=== PATIENT | female | born 1945 | race Caucasian/White ===

== ENCOUNTER → 2024-09-09 10:51 | Outpatient (REF) | payer MEDICARE, OTHER, SELFPAY | LOC: RCS 10:51 | PROVIDERS: ATTENDING PHYSICIAN Nurse Practitioner Family | DX: I10 Essential (primary) hypertension (principal) | CPT/HCPCS: 93005 ==

== ENCOUNTER → 2024-09-16 15:30 | Outpatient (REF) | payer MEDICARE, OTHER, SELFPAY | LOC: HWRCS 15:30 | PROVIDERS: ATTENDING PHYSICIAN Physician Assistant | DX: I10 Essential (primary) hypertension (principal); R94.31 Abnormal electrocardiogram [ECG] [EKG] | CPT/HCPCS: 93306 ==

== ENCOUNTER → 2024-09-27 13:57 | Outpatient (REF) | payer MEDICARE, OTHER, SELFPAY | LOC: HWWDC 13:57 | PROVIDERS: ATTENDING PHYSICIAN Physician Assistant | DX: Z12.31 Encounter for screening mammogram for malignant neoplasm of breast (principal) | CPT/HCPCS: 77063; 77067 ==

== ENCOUNTER → 2024-10-14 10:03 | Outpatient (REF) | payer MEDICARE, OTHER, SELFPAY | LOC: WDC 10:03 | PROVIDERS: ATTENDING PHYSICIAN Physician Assistant | DX: R92.8 Other abnormal and inconclusive findings on diagnostic imaging of breast (principal) | CPT/HCPCS: 76642 ==

== ENCOUNTER → 2024-10-17 20:12 | Outpatient (REF) | payer MEDICARE, OTHER, SELFPAY | LOC: MRI 3T 20:12 | PROVIDERS: ATTENDING PHYSICIAN Physician Assistant | DX: R51.9 Headache, unspecified (principal); R20.0 Anesthesia of skin | CPT/HCPCS: 70553; A9575 ==

== ENCOUNTER 2024-10-20 12:08 | Emergency (ER) | payer MEDICARE, OTHER, SELFPAY ==
[2024-10-20 12:13] VITALS: BP 152/91
[2024-10-20 12:33] LABS: Urine Albumin Negative (Neg - Trace); Urine Bilirubin Negative (Negative); Urine Character Clear (Clear); Urine Color Yellow; Urine Glucose Negative (Negative); Urine Ketone 3+ (Negative); Urine Leukocyte 2+ (Negative); Urine Nitrite Negative (Negative); Urine Occult Blood 1+ (Negative); Urine Specific Gravity 1.025 (<1.030); Urine Urobilinogen Negative (Neg - 1+)
[2024-10-20 12:34] LABS: % Basophils 0.6 % (0-2); % Eosinophils 0.3 % (0-6); % Immature Granulocytes 0.5 % (0-0.5); % Lymphocytes 6.7 % (20.5-51.1); % Monocytes 5.3 % (1.7-9.3); % Neutrophils 86.6 % (42.2-75.2); Absolute Basophils 0.1 10^3/uL (0-0.2); Absolute Immature Granulocytes 0.1 10^3/uL (0-0.05); Absolute Lymphocytes 0.7 10^3/uL (1.2-3.4); Absolute Monocytes 0.6 10^3/uL (0.1-0.6); Absolute Neutrophils 9.5 10^3/uL (1.4-6.5); Hematocrit 39.7 % (37.0-47.0); Mean Corp Hgb Conc. 32.7 g/dL (33.0-37.0); Mean Corpuscular Hgb 30.7 pg (27.0-31.0); Mean Corpuscular Volume 93.9 fL (81.0-99.0); Mean Platelet Volume 9.2 fL (7.4-10.4); Nucleated Red Blood Cells % 0 %; Platelet Count 266 10^3/uL (130-400); Red Blood Cell Count 4.23 10^6/uL (4.20-5.40); Red Cell Dist. Width 13.7 % (11.5-14.5)
[2024-10-20 12:46] LABS: ALT (SGPT) 20 U/L (0-35); AST (SGOT) 25 U/L (14-36); Albumin 4.7 g/dl (3.5-5.0); Alkaline Phosphatase 72 U/L (38-126); Blood Urea Nitrogen 28 mg/dl (7-17); Calcium 9.7 mg/dl (8.4-10.2); Carbon Dioxide 27 mmol/L (22-30); Chloride 102 mmol/L (98-107); Glucose 186 mg/dl (70-99); Potassium 4.3 mmol/L (3.5-5.1); Sodium 138 mmol/L (135-145); Total Bilirubin 0.6 mg/dl (0.2-1.3); Total Protein 7.4 g/dl (6.3-8.2); Urine Bacteria Few (Negative); Urine Mucus Moderate; eGFR > 60.00
--- NOTE | 2024-10-20 14:00 | ED.GENMED ---
History of Present Illness
General
Chief Complaint: Flank Pain
Source: patient
Exam Limitations: none
Time Seen by Provider: 10/20/24 13:06
Nursing documentation reviewed up to this point in time: agreed with
History of Present Illness
History of Present Illness:
Patient is a 78-year-old female who presents to the ER for evaluation of right flank pain. She was at her state 9:30 AM and developed sudden pain in the right abdomen and right flank. She reports she had dry heaves and nausea but did not vomit.
She moved her bowels and that did not relieve her symptoms. Pain persisted and she presented to the ER. Now she reports she is asymptomatic. She has no prior history kidney stone. She denies any recent UTI symptoms. She denies any recent fever
or chills.
Review of Systems
Review of Systems
Allergies reviewed?: Yes
All Other Systems: ROS reviewed and negative except as documented in HPI and ROS
Constitutional: Reports no symptoms
Respiratory: Reports no symptoms
Cardiac: Reports no symptoms
ABD/GI: Reports abdominal pain, nausea and other (symptoms resolved now ); Denies vomiting, diarrhea or constipated
Phy Exam
General Physical Exam
General Presentation: no apparent distress
General age: appears stated age
General Skin: warm and dry
General Habitus: normal
General Mental: alert
General Hydration: appears well hydrated
Cardiovascular Exam
Cardiovascular Exam: regular rate/rhythm, no murmur and normal peripheral pulses
Pulmonary Exam
Pulmonary Exam: lungs clear and no respiratory distress
Gastrointestinal Exam
Gastrointestinal Exam: non tender and soft
Neurological Exam
Neurological Exam: alert and oriented x3
Musculoskeletal Exam
Musculoskeletal Exam: full ROM
Skin Exam
Skin Exam: normal color and warm/dry
Psychiatric Exam
Psychiatric Exam: normal mood/affect
Course
Orders/Labs/Results
Orders:
Orders
10/20/24 12:27
Complete Blood Count/With Diff Urgent
Comprehensive Metabolic Panel Urgent
Urinalysis Reflex To Culture Urgent
Date Specimen was Collected: 10/20/24
Time Specimen was Collected: 12:19
Urine Microscopic Reflex Cult Urgent
Urine Culture Urgent
MARTÍN Source: U
Specimen Description:
Date Specimen was Collected: 10/20/24
Time Specimen was Collected: 12:19
10/20/24 14:08
CT Abd/pel Without Iv Or Oral Urgent
Comment:
Reason For Exam: right flank pain
Abnormal Lab Results
10/20/24
12:27
WBC 11.0 H 10^3/uL
(4.8-10.8)
MCHC 32.7 L g/dL
(33.0-37.0)
Abs Immat Gran (auto) 0.1 H 10^3/uL
(0-0.05)
Absolute Neuts (auto) 9.5 H 10^3/uL
(1.4-6.5)
Absolute Lymphs (auto) 0.7 L 10^3/uL
(1.2-3.4)
Neutrophils % 86.6 H %
(42.2-75.2)
Lymphocytes % 6.7 L %
(20.5-51.1)
BUN 28 H mg/dl
(7-17)
Glucose 186 H mg/dl
(70-99)
Urine Ketones 3+ A
(Negative)
Ur Occult Blood Reflex 1+ A
(Negative)
Leukocyte Esterase Rfl 2+ A
(Negative)
Urine RBC 3-6 A /HPF
(0-2)
Urine Bacteria (Reflex) Few A
(Negative)
10/20/24 12:27
10/20/24 12:27
Vital Signs
Initial and Last Documented VS:
Initial Vital Signs
Temp Pulse Resp BP Pulse Ox
97.8 F 69 18 152/91 100
10/20/24 12:13 10/20/24 12:13 10/20/24 12:13 10/20/24 12:13 10/20/24 12:13
Last Documented Vital Signs
Temp Pulse Resp BP Pulse Ox
97.8 F 75 20 123/65 100
10/20/24 12:13 10/20/24 14:33 10/20/24 14:33 10/20/24 14:33 10/20/24 12:13
MDM/Problems Addressed
Differential Diagnosis Includes:
not limited to recently passed stone less likely UTI/Balaji
MDM/Problems Addressed:
Patient presented with complaints of right flank pain with nausea dry heaves that started this morning however resolved spontaneously. No UTI symptoms. Patient denies any fever or chills. She is afebrile with minimally elevated white count of
11.0 however asymptomatic here in the ER abdomen soft nontender no complaint of flank pain; urinalysis does not appear infected. CAT scan shows findings suggesting the possibility of recently 1 mm passed calculus within the bladder with monitor
right perinephric soft tissue stranding no hydronephrosis. Incidental left renal cyst which I did review with patient.
Patient's BUN is minimally elevated discussed with patient to stay better hydrated she may take Motrin as needed and strain urine
*Radiology
Radiology exam reviewed: radiology read reviewed
*Critical Care Note
Total Time (30-74mins, 75-104mins- exclusive of procedures): Not Applicable
ED Attending Note
-
Portions of this chart may have been created with voice recognition software.� Occasional wrong word or��sound alike� substitutions may have occurred due to the inherent limitations of voice recognition software.
Discharge Plan
Departure
Patient Disposition: Home (Routine Discharge)
Date of Disposition: 10/20/24
Time of Disposition: 17:06
Patient with high blood pressure during this ER visit?: Yes
Covid-19: Not Applicable
Discharge Problem:
Acute flank pain
Instructions: Flank Pain (DC), How to Strain Your Urine, BLOOD PRESSURE
Referrals:
Dayami Connor PA [Family Provider] -
Keegan Blank Jr., MD [Active] -
Activity Restrictions/Additional Instructions:
As discussed findings are consistent with recently passed kidney stone. Strain all urine. Increase your water intake. Follow-up with urology as discussed and return if any worsening of symptoms
Interventions
Interventions:
*Risk Screen - Suicide Last Done: 10/20/24 12:13
*General Assessment Last Done: 10/20/24 12:13
*Neglect/Abuse Screening Last Done: 10/20/24 12:13
UE-Esxmzx-Iywzuxrdum Assessment Last Done: 10/20/24 13:39
ED-Female Genitourinary Assessment Last Done: 10/20/24 13:39
Discharge Date and Time
Print Language: SLOVENIAN
[2024-10-20 14:33] VITALS: BP 123/65
== END 2024-10-20 17:25 | disposition home or self-care (01) ==
LOC: EMR 12:08
PROVIDERS: EMERGENCY PHYSICIAN Emergency Medicine; FAMILY PHYSICIAN Physician Assistant
DX: R10.9 Unspecified abdominal pain (principal); R11.0 Nausea
CPT/HCPCS: 99284; 74176; 80053; 81003; 81015; 85025; 87086

== ENCOUNTER → 2024-11-01 09:29 | Outpatient (REF) | payer MEDICARE, OTHER, SELFPAY | LOC: RAD 09:29 | PROVIDERS: ATTENDING PHYSICIAN Physician Assistant | DX: R51.9 Headache, unspecified (principal); R20.0 Anesthesia of skin; I10 Essential (primary) hypertension; R09.89 Other specified symptoms and signs involving the circulatory and respiratory systems | CPT/HCPCS: 93880 ==